=== PATIENT | male | born 1965 | race Caucasian/White ===

== ENCOUNTER 2021-04-10 17:59 | Inpatient (IN) ==
[2021-04-10 19:50] LABS: Bacteria,Urine Few per hpf (None-Few); Bilirubin,Urine Negative (Negative); Blood,Urine Negative (Negative); Clarity,Urine Clear (Clear); Color,Urine Yellow (Yellow); Glucose,Urine (UA) 100 mg/dL (Normal); Ketones,Urine Negative (Negative); Leukocyte Esterase,Urine Negative (Negative); Nitrite,Urine Negative (Negative); Protein,Urine 30 mg/dL (Neg-Trace); RBC,Urine 0-3 per hpf (0-3); Specific Gravity,Urine 1.019 (1.010-1.025); Urobilinogen,Urine Normal (Normal); WBC,Urine 0-3 per hpf (0-3)
[2021-04-10 19:51] LABS: Basophils % 0.3 %; Eosinophils % 0.2 %; Hematocrit 35.4 % (37.5-50.1); Hemoglobin 12.3 g/dL (12.9-16.9); Immature Granulocytes % 0.3 % (0-4); Lymphocytes # 0.8 K/mcL (0.6-4.6); Lymphocytes % 12.3 %; Mean Corpuscular HGB Conc 34.7 g/dL (31.6-35.5); Mean Corpuscular Hemoglobin 28.2 pg (28.0-33.3); Mean Corpuscular Volume 81.2 fL (83.0-100.0); Mean Platelet Volume 9.1 fL (9.4-12.4); Monocytes # 0.4 K/mcL (0.0-1.3); Monocytes % 6.7 %; Neutrophils # 5.2 K/mcL (1.6-8.9); Platelet Count 222 K/mcL (140-400); Red Blood Count 4.36 M/mcL (4.19-5.50); Red Cell Distribution Width 13.9 % (11.5-14.5); Segmented Neutrophils % 80.2 %; White Blood Count 6.4 K/mcL (4.3-11.1)
[2021-04-10 20:14] LABS: Alanine Aminotransferase 22 Units/L (7-52); Albumin 3.7 g/dL (3.5-5.7); Albumin/Globulin Ratio 1.2 (1.1-2.2); Alkaline Phosphatase 76 Units/L (34-104); Aspartate Amino Transferase 21 Units/L (13-39); BUN/Creatinine Ratio 11 (6-26); Bilirubin,Direct 0.1 mg/dL (0.0-0.2); Bilirubin,Indirect 0.4 mg/dL (0.0-1.0); Bilirubin,Total 0.5 mg/dL (0.3-1.0); Blood Urea Nitrogen 8 mg/dL (6-20); Calcium 8.8 mg/dL (8.6-10.3); Carbon Dioxide 25 mEq/L (23-29); Chloride 87 mEq/L (98-107); Glucose 121 mg/dL (70-105); Lipase 10 Units/L (11-82); Osmolality,Calculated 250 (280-300); Potassium 4.2 mEq/L (3.5-5.1); Sodium 120 mEq/L (136-145); Total Protein 6.7 g/dL (6.4-8.9); eGFR For African Americans > 60 (> 60); eGFR For Non-African Americans > 60 (> 60)
[2021-04-10] MEDS ORDERED: Isovue-370 500 ML BOTTLE IVP ONE (20:33)
[2021-04-10 22:12] LABS: Influenza A PCR Negative (Negative); Influenza B PCR Negative (Negative); Resp. Syncytial Virus PCR Negative (Negative)
[2021-04-10 22:25] LABS: SARS-CoV-2 by PCR (In House) Negative (Negative)
[2021-04-10 23:42] LABS: Sodium, Urine 26.9 mEq/L
[2021-04-11 00:01] LABS: Thyroid Stimulating Hormone 5.249 mcIU/mL (0.340-5.600)
[2021-04-11] MEDS ORDERED: Acetaminophen 325 MG TABLET PO PRN (01:30)
[2021-04-11] MEDS ORDERED: Naloxone 0.4 MG/ML INJ IVP PRN (01:30)
[2021-04-11] MEDS ORDERED: Ondansetron 4 MG/2 ML VIAL IVP PRN (01:30)
[2021-04-11] MEDS ORDERED: Dextrose Gel 15 GM/37.5 ML TUBE PO PRN ×2 (01:34)
[2021-04-11] MEDS ORDERED: D5% in Water 1,000 ML IVC PRN (01:34)
[2021-04-11] MEDS ORDERED: *HR* Dextrose 50 % in Water (Syg) 50 ML SYRINGE IVP PRN (01:34)
[2021-04-11] MEDS ORDERED: 0.9 % Sodium Chloride 1,000 ML IVC SCH ×2 (01:45→11:15)
[2021-04-11 02:23] LABS: Basophils % 0.2 %; Eosinophils % 0.5 %; Hematocrit 32.6 % (37.5-50.1); Immature Granulocytes % 0.5 % (0-4); Lymphocytes # 0.7 K/mcL (0.6-4.6); Lymphocytes % 16.2 %; Mean Corpuscular HGB Conc 33.7 g/dL (31.6-35.5); Mean Corpuscular Volume 80.1 fL (83.0-100.0); Mean Platelet Volume 8.9 fL (9.4-12.4); Monocytes # 0.3 K/mcL (0.0-1.3); Monocytes % 7.6 %; Neutrophils # 3.1 K/mcL (1.6-8.9); Platelet Count 187 K/mcL (140-400); Red Blood Count 4.07 M/mcL (4.19-5.50); Red Cell Distribution Width 13.8 % (11.5-14.5); White Blood Count 4.1 K/mcL (4.3-11.1)
[2021-04-11 02:40] LABS: Adenovirus Not Detected (Not Detect); Bordetella Pertussis Not Detected (Not Detect); Chlamydophila pneumoniae Not Detected (Not Detect); Coronavirus 229E Not Detected (Not Detect); Coronavirus HKU1 Not Detected (Not Detect); Coronavirus NL63 Not Detected (Not Detect); Coronavirus OC43 Not Detected (Not Detect); Human Metapneumovirus Not Detected (Not Detect); Human Rhinovirus/Enterovirus DETECTED (Not Detect); Influenza A Subtype 2009 H1 Not Detected (Not Detect); Influenza B Not Detected (Not Detect); Mycoplasma pneumoniae Not Detected (Not Detect); Parainfluenza Virus 1 Not Detected (Not Detect); Parainfluenza Virus 2 Not Detected (Not Detect); Parainfluenza Virus 3 Not Detected (Not Detect); Parainfluenza Virus 4 Not Detected (Not Detect); Respiratory Syncytial Virus Not Detected (Not Detect); SARS-CoV-2 Not Detected (Not Detect)
[2021-04-11 02:42] LABS: BUN/Creatinine Ratio 13 (6-26); Blood Urea Nitrogen 8 mg/dL (6-20); Calcium 8.6 mg/dL (8.6-10.3); Carbon Dioxide 24 mEq/L (23-29); Chloride 91 mEq/L (98-107); Glucose 91 mg/dL (70-105); Osmolality,Calculated 252 (280-300); Potassium 3.9 mEq/L (3.5-5.1); Sodium 122 mEq/L (136-145); eGFR For African Americans > 60 (> 60); eGFR For Non-African Americans > 60 (> 60)
[2021-04-11] MEDS ORDERED: Isovue-370 500 ML BOTTLE IVP ONE (03:13)
[2021-04-11 04:15] LABS: Procalcitonin 0.2 ng/mL (0.00-0.15)
[2021-04-11] MEDS: Ipratropium/Albuterol Neb 3 ML IH SCH ×4 (04:47→20:59)
[2021-04-11] MEDS ORDERED: MethylPREDNISolone 40 MG/ML VIAL IVP SCH (06:00)
[2021-04-11] MEDS: Insulin LISPRO 300 UNITS/3 ML VIAL SUBQ SCH ×4 (07:25→20:50)
[2021-04-11] MEDS: Azithromycin 250 MG TABLET PO SCH (08:38)
[2021-04-11] MEDS: Pantoprazole 40 MG VIAL IVP SCH (08:48)
[2021-04-11 11:29] LABS: BUN/Creatinine Ratio 9 (6-26); Blood Urea Nitrogen 6 mg/dL (6-20); Calcium 8.3 mg/dL (8.6-10.3); Carbon Dioxide 23 mEq/L (23-29); Chloride 95 mEq/L (98-107); Glucose 82 mg/dL (70-105); Osmolality,Calculated 259 (280-300); Potassium 3.9 mEq/L (3.5-5.1); Sodium 126 mEq/L (136-145); eGFR For African Americans > 60 (> 60); eGFR For Non-African Americans > 60 (> 60)
[2021-04-11 14:56] LABS: BUN/Creatinine Ratio 11 (6-26); Blood Urea Nitrogen 7 mg/dL (6-20); Calcium 8.1 mg/dL (8.6-10.3); Carbon Dioxide 24 mEq/L (23-29); Chloride 93 mEq/L (98-107); Glucose 169 mg/dL (70-105); Osmolality,Calculated 256 (280-300); Potassium 4.1 mEq/L (3.5-5.1); Sodium 122 mEq/L (136-145); eGFR For African Americans > 60 (> 60); eGFR For Non-African Americans > 60 (> 60)
[2021-04-11] MEDS: 0.9 % Sodium Chloride 1,000 ML IVC SCH (16:15)
[2021-04-11 19:03] LABS: BUN/Creatinine Ratio 9 (6-26); Blood Urea Nitrogen 6 mg/dL (6-20); Calcium 8.2 mg/dL (8.6-10.3); Carbon Dioxide 25 mEq/L (23-29); Chloride 93 mEq/L (98-107); Glucose 304 mg/dL (70-105); Osmolality,Calculated 265 (280-300); Potassium 3.8 mEq/L (3.5-5.1); Sodium 123 mEq/L (136-145); eGFR For African Americans > 60 (> 60); eGFR For Non-African Americans > 60 (> 60)
[2021-04-11 23:26] LABS: BUN/Creatinine Ratio 8 (6-26); Blood Urea Nitrogen 5 mg/dL (6-20); Calcium 8.5 mg/dL (8.6-10.3); Carbon Dioxide 23 mEq/L (23-29); Chloride 97 mEq/L (98-107); Glucose 125 mg/dL (70-105); Osmolality,Calculated 265 (280-300); Potassium 3.9 mEq/L (3.5-5.1); Sodium 128 mEq/L (136-145); eGFR For African Americans > 60 (> 60); eGFR For Non-African Americans > 60 (> 60)
[2021-04-12] MEDS: Ipratropium/Albuterol Neb 3 ML IH SCH ×4 (03:38→21:03)
[2021-04-12] MEDS: 0.9 % Sodium Chloride 1,000 ML IVC SCH ×3 (05:53→22:48)
[2021-04-12 06:16] LABS: Basophils % 0.3 %; Eosinophils % 0.6 %; Hematocrit 31.3 % (37.5-50.1); Hemoglobin 10.3 g/dL (12.9-16.9); Lymphocytes # 0.6 K/mcL (0.6-4.6); Lymphocytes % 18.4 %; Mean Corpuscular HGB Conc 32.9 g/dL (31.6-35.5); Mean Corpuscular Hemoglobin 26.9 pg (28.0-33.3); Mean Corpuscular Volume 81.7 fL (83.0-100.0); Mean Platelet Volume 9.4 fL (9.4-12.4); Monocytes # 0.3 K/mcL (0.0-1.3); Monocytes % 8.6 %; Neutrophils # 2.4 K/mcL (1.6-8.9); Platelet Count 204 K/mcL (140-400); Red Blood Count 3.83 M/mcL (4.19-5.50); Segmented Neutrophils % 72.1 %; White Blood Count 3.3 K/mcL (4.3-11.1)
[2021-04-12 06:25] LABS: BUN/Creatinine Ratio 7 (6-26); Blood Urea Nitrogen 4 mg/dL (6-20); Calcium 8.2 mg/dL (8.6-10.3); Carbon Dioxide 25 mEq/L (23-29); Chloride 99 mEq/L (98-107); Glucose 133 mg/dL (70-105); Osmolality,Calculated 269 (280-300); Potassium 3.9 mEq/L (3.5-5.1); Sodium 130 mEq/L (136-145); eGFR For African Americans > 60 (> 60); eGFR For Non-African Americans > 60 (> 60)
[2021-04-12] MEDS: Insulin LISPRO 300 UNITS/3 ML VIAL SUBQ SCH ×4 (07:39→20:20)
[2021-04-12] MEDS: Azithromycin 250 MG TABLET PO SCH (08:28)
[2021-04-12] MEDS: Pantoprazole 40 MG VIAL IVP SCH (08:29)
[2021-04-12 11:47] LABS: Protein/Creatinine Ratio,Urine 0.39 mg/mg (0.00-0.20)
[2021-04-12] MEDS ORDERED: Lidocaine -MPF 2% 5 ML VIAL ONE (12:42)
[2021-04-12] MEDS ORDERED: *HR* Propofol 200 MG/20 ML VIAL IVP ONE (12:42)
[2021-04-13 01:05] LABS: Basophils % 0.3 %; Eosinophils % 0.8 %; Hematocrit 30.8 % (37.5-50.1); Hemoglobin 10.3 g/dL (12.9-16.9); Immature Granulocytes % 0.5 % (0-4); Lymphocytes # 0.8 K/mcL (0.6-4.6); Lymphocytes % 20.4 %; Mean Corpuscular HGB Conc 33.4 g/dL (31.6-35.5); Mean Corpuscular Hemoglobin 27.6 pg (28.0-33.3); Mean Corpuscular Volume 82.6 fL (83.0-100.0); Mean Platelet Volume 9.3 fL (9.4-12.4); Monocytes # 0.3 K/mcL (0.0-1.3); Monocytes % 6.7 %; Neutrophils # 2.8 K/mcL (1.6-8.9); Platelet Count 231 K/mcL (140-400); Red Blood Count 3.73 M/mcL (4.19-5.50); Red Cell Distribution Width 13.8 % (11.5-14.5); Segmented Neutrophils % 71.3 %; White Blood Count 3.9 K/mcL (4.3-11.1)
[2021-04-13 01:24] LABS: BUN/Creatinine Ratio 12 (6-26); Blood Urea Nitrogen 8 mg/dL (6-20); Calcium 7.9 mg/dL (8.6-10.3); Carbon Dioxide 24 mEq/L (23-29); Chloride 99 mEq/L (98-107); Glucose 151 mg/dL (70-105); Osmolality,Calculated 271 (280-300); Potassium 4.2 mEq/L (3.5-5.1); Sodium 130 mEq/L (136-145); eGFR For African Americans > 60 (> 60); eGFR For Non-African Americans > 60 (> 60)
[2021-04-13] MEDS: Ipratropium/Albuterol Neb 3 ML IH SCH ×2 (04:20→10:05)
[2021-04-13 06:54] VITALS: O2SAT 96
[2021-04-13] MEDS: Azithromycin 250 MG TABLET PO SCH (08:27)
[2021-04-13] MEDS: Insulin LISPRO 300 UNITS/3 ML VIAL SUBQ SCH ×2 (08:27→11:59)
[2021-04-13] MEDS: Pantoprazole 40 MG VIAL IVP SCH (08:28)
[2021-04-13] MEDS ORDERED: [UNRECOGNIZED DRUG - OTHER] SQ SCH (09:00)
[2021-04-13 11:01] VITALS: BP 129/69; PULSE 77; TEMP 98
[2021-04-16 07:56] LABS: Mycoplasma pneumoniae IgG 0.09 U/L (<=0.09)
== END 2021-04-13 12:19 | disposition home or self-care (01) | DRG 426 ==
LOC: 2ANU 17:59 → EMEROOARM 17:59 → SUATTDRO 23:55 → 2ANU 04-11 00:41
PROVIDERS: ADMIT Internal Medicine; ATTEND Internal Medicine
PROC: ENDOEBX (2021-04-12 14:30)